=== PATIENT | female | born 1970 | race Caucasian/White ===

== ENCOUNTER 2024-09-07 09:35 | Emergency (ER) | payer BC, SELFPAY ==
[2024-09-07 09:36] VITALS: BP 157/75; PULSE 86; RESP 15; TEMP 36.7; O2SAT 97; BMI 21.1
--- NOTE | 2024-09-07 09:48 | EX.ED.VIS.UR ---
HPI HPI - URI History of Present Illness Chief Complaint: Cold Sx Informant: patient Onset/Context/Timing Onset: Days (2) Context: Gradual Onset Timing: Continuous Quality: Congested Location: Chest Worsened by: - (Nothing) Relieved by: - (Nothing) Associated Symptoms Associated Symptoms: Positive for Nasal Congestion, Headache, Shortness of Breath (With coughing episodes) and Productive Cough; Negative for Sinus Pressure, Myalgias, Nausea, Vomiting, Diarrhea, Chest Pain, Nonproductive cough or Hemoptysis Narrative Narrative: Patient presents with cough and chest congestion that has been getting worse over the past 2 days. Patient states it is gradually getting worse. Patient states it has been constant. Patient states he has a productive cough but swallows her sputum. Patient does not know the color of her sputum. Patient denies any fevers or chills. Patient admits to some shortness of breath with coughing episodes. Patient denies any chest pain. Patient admits to some rhinorrhea and a mild headache. ROS ROS ED Constitutional Constitutional ED: Denies chills or fever(s) Eyes Eyes: Denies blurry vision or change in vision ENT ENT ED: Reports rhinorrhea; Denies sore throat Cardiovascular Cardiovascular: Denies chest pain or palpitations Respiratory/Chest Respiratory/Chest: Reports cough and dyspnea Gastrointestinal Gastrointestinal: Denies nausea or vomiting Genitourinary Genitourinary ED: Denies dysuria or hematuria Musculoskeletal Musculoskeletal: Denies back pain or neck pain Integumentary Denies abscess or rash Neurologic Neurologic: Reports headache(s); Denies weakness Allergic/Immunologic Allergic/Immunologic ED: Denies mouth swelling or urticaria PFSH PFSH Medical History no medical history no medical history Home Medications ?Medication ?Instructions ?Recorded ?Last Taken ?Type oxycodone 5 mg tablet 5 mg PO Q6H PRN PRN Pain 11/26/16 Unknown History zolpidem 5 mg tablet 5 mg PO QHS PRN PRN INSOMNIA 11/26/16 Unknown History Allergy/AdvReac Type Severity Reaction Status Date / Time aspirin Allergy Anaphylaxis Verified 09/07/24 09:39 Surgical History (Updated 09/07/24 @ 09:[address] Elmer Donis, DO) History of section Social History Smoking Status: Current every day smoker tobacco type: cigarettes EXAM Physical Exam Const Vital Signs: 09/07/24 09:36 09/07/24 09:53 Temperature 98.1 F Temperature Source Temporal Pulse Rate 86 Respiratory Rate 15 Respiratory Effort Normal Respiratory Pattern Normal Blood Pressure 157/75 H Blood Pressure Mean 102 Pulse Ox 97 Oxygen Delivery Method Room Air Positive well nourished and well developed General Appearance ED: well developed and NAD HEENT Reports moist mucous membranes normocephalic and atraumatic Neck supple, no meningeal signs and no JVD Resp normal respiratory effort Auscultation: wheezes expiratory wheezes (Slight left upper lobe expiratory wheeze) Cardio Rate: regular rate Rhythm: regular rhythm GI non-tender and non-distended Palpation: soft Neuro oriented x3, CN's II-XII intact bilaterally and no sensory deficits noted Sensorium / Orientation: alert Motor Exam: strength 5/5 throughout Psych mental status grossly normal MDM MDM MDM Narrative Medical decision making narrative: Differential diagnosis includes pneumonia, bronchitis, and viral upper respiratory infection. Chest x-ray will be obtained to assess for pneumonia. Radiography Chest X-Ray - ED: 2 View, Read by ED Physician, Read by Radiologist and No Acute Disease Diagnostic Testing: Clinical Impression(s) from Imaging Studies Chest X-Ray 09/07/24 09:52 IMPRESSION: Hyperinflation and COPD. No acute abnormality is seen. Reading Location: [facility] PA and lateral chest x-ray was obtained. There are 2 views. On my independent interpretation, lung florence are clear. There is normal cardiac silhouette. Bony thorax is normal. There is no acute process noted. Radiologist also interpreted the x-ray and agrees. Treatment and Re-Evaluation Narrative: Smoking cessation was discussed. Patient was advised of her findings. Patient was advised that this is a viral upper respiratory infection. Patient was instructed to take Tylenol or ibuprofen as needed for any aches or fevers. Patient was instructed to drink plenty of fluids. Patient was instructed to use [id number] cough medications as needed. Patient was instructed to follow-up with a primary care physician in 5 to 7 days. Patient understood and was agreeable with the plan. All questions were answered. Discharge Plan Triage Chief Complaint: Cold Sx ED Provider: Elmer Donis Dx/Rx/DC Orders Clinical Impression: URI (upper respiratory infection), Tobacco use disorder Instructions: ED URI, Viral, No Abx (Adult) Prescriptions: No Action zolpidem 5 MG tablet 5 mg PO QHS PRN PRN (Reason: INSOMNIA) Patient Comments: take 1 tablet by mouth at bedtime if needed for SEDATION oxycodone 5 MG tablet 5 mg PO Q6H PRN PRN (Reason: Pain) Primary Care Provider: Braden Abrams Referrals: Braden Abrams MD [Primary Care Provider] - 5-7 Days Print Language: Swazi Disposition Disposition: Home, Self Care
--- NOTE | 2024-09-07 09:52 | RAD_ITS ---
PROCEDURE: CHEST PA AND LATERAL REASON FOR EXAM: 2 day history of flu-like symptoms. TECHNIQUE: PA and lateral chest radiographs were obtained. COMPARISON: None. FINDINGS: Hyperinflation. Calcified left hilar lymph nodes as well as a calcified granuloma in the left midlung. Prominence of the central pulmonary arteries suggestive of COPD. The bones are unremarkable. RAD/Chest PA and Lateral IMPRESSION: Hyperinflation and COPD. No acute abnormality is seen. Reading Location: [id number]
== END 2024-09-07 10:29 | disposition home or self-care (01) ==
LOC: ED 10:23
PROVIDERS: Emergency Provider Emergency Medicine; PCP Family Medicine; Visit Provider Emergency Medicine
DX: J06.9 Acute upper respiratory infection, unspecified (principal); F17.210 Nicotine dependence, cigarettes, uncomplicated
CPT/HCPCS: 71046; 99282